=== PATIENT | male | born 1980 | race African-American/Black ===

== ENCOUNTER 2017-07-28 16:15 | Emergency (ER) | payer SELFPAY ==
[~2017-07-28] VITALS: Ht 175.3 cm; Wt 125.0 kg
[2017-07-28 16:20] VITALS: BP 140/70
== END 2017-07-28 17:37 | disposition left against medical advice (07) ==
LOC: ER 16:56
DX: Z53.21 Procedure and treatment not carried out due to patient leaving prior to being seen by health care provider (principal)

== ENCOUNTER 2019-10-03 18:49 | Emergency (ER) | payer SELFPAY | END 2019-10-03 21:09 | disposition left against medical advice (07) | LOC: ER 18:49 | DX: Z04.1 Encounter for examination and observation following transport accident (principal); Z53.21 Procedure and treatment not carried out due to patient leaving prior to being seen by health care provider ==